=== PATIENT | female | born 1990 | race Caucasian/White ===

== ENCOUNTER 2022-03-11 06:08 | Inpatient (IN) | payer OTHER ==
[2022-03-11] MEDS ORDERED: BICITRA ORAL LIQD 30ML PO NR (07:32)
[2022-03-11] MEDS ORDERED: METOCLOPRAMIDE 10 MG/2 ML INJ IV NR (07:32)
[2022-03-11] MEDS ORDERED: FAMOTIDINE 20 MG/2 ML INJ IV NR (07:32)
[2022-03-11 07:40] LABS: Basophils % (Auto) 0.2 % (0.0-1.8); Eosinophils # (Auto) 0.1 K/mm3 (0.0-0.4); Eosinophils % (Auto) 1.1 % (0.0-4.3); Hematocrit 32.9 % (30.3-42.9); Lymphocytes % (Auto) 22.5 % (13.4-35.0); Mean Corpuscular HGB Conc 33 % (30-34); Mean Corpuscular Volume 91 fl (79-97); Monocytes # (Auto) 0.8 K/mm3 (0.0-0.8); Platelet Count 189 K/mm3 (140-440); Red Blood Count 3.61 M/mm3 (3.65-5.03); Red Cell Distribution Width 14.2 % (13.2-15.2)
[2022-03-11] MEDS ORDERED: ceFAZolin/Water 2 GM/20 ML 2 GM/20 ML SYRINGE IV NR (08:00)
[2022-03-11] MEDS ORDERED: LACTATED RINGERS 1,000 ML IV SCH ×2 (08:00→15:00)
[2022-03-11] MEDS ORDERED: WITCH HAZEL/ GLYCERIN PAD TP PRN (08:00)
[2022-03-11] MEDS ORDERED: OXYTOCIN DRIP 30 UNITS/500 ML BAG IV SCH ×2 (08:00)
[2022-03-11] MEDS ORDERED: PROMETHAZINE 25 MG RECT SUPP PR PRN (08:30)
[2022-03-11] MEDS ORDERED: ACETAMINOPHEN 325 MG TAB PO PRN (09:00)
[2022-03-11] MEDS ORDERED: LANOLIN/ZINC/DIMETHICONE (LANSINOH) 7 GM TP PRN (09:00)
[2022-03-11] MEDS ORDERED: NALOXONE 0.4 MG/1 ML INJ IV PRN (09:00)
[2022-03-11] MEDS ORDERED: IBUPROFEN 600 MG TAB PO PRN (09:00)
[2022-03-11] MEDS ORDERED: ONDANSETRON 4 MG/2 ML INJ IV PRN (09:00)
[2022-03-11] MEDS ORDERED: MORPHINE 4 MG/1 ML INJ IV PRN (09:00)
--- NOTE | 2022-03-11 09:10 | Anesthesia Day of Surgery ---
Anesthesia Day of Surgery - Day of Surgery Patient Examined: Yes Patient H&P Reviewed: Yes Patient is NPO: Yes
--- NOTE | 2022-03-11 09:14 | Anesthesia Consultation ---
Anesthesia Consult and Med Hx Date of service: 03/11/22 - Airway Anesthetic Teeth Evaluation: Poor ROM Head & Neck: Adequate Mental/Hyoid Distance: Adequate Mallampati Class: Class II Intubation Access Assessment: Probably Good - Pulmonary Exam CTA: Yes - Cardiac Exam Cardiac Exam: RRR - Pre-Operative Health Status ASA Pre-Surgery Classification: ASA3 Proposed Anesthetic Plan: Epidural, Spinal - Pulmonary Hx Smoking: No Hx Asthma: No SOB: Yes COPD: No Hx Pneumonia: No Hx Sleep Apnea: No (Snores but denies KIKI) - Cardiovascular System Hx Hypertension: Yes - Central Nervous System Hx Neuromuscular Disorder: No Hx Seizures: No Hx Back Pain: Yes Hx Psychiatric Problems: No - Gastrointestinal Hx Gastroesophageal Reflux Disease: Yes - Endocrine Hx Renal Disease: No Hx End Stage Renal Disease: No Hx Hypothyroidism: No Hx Hyperthyroidism: No - Hematic Hx Anemia: No Hx Sickle Cell Disease: No - Other Systems Hx Alcohol Use: No Hx Substance Use: No Hx Obesity: Yes
--- NOTE | 2022-03-11 09:22 | History and Physical Report ---
History of Present Illness Date of admission: 03/11/22 06:08 Past History - Obstetrical History : 3 Medications and Allergies Allergies Allergy/AdvReac Type Severity Reaction Status Date / Time No Known Allergies Allergy Unverified 03/11/22 07:28 Active Meds: Active Medications Acetaminophen (Acetaminophen 325 Mg Tab) 650 mg PO Q4H PRN PRN Reason: Fever >100.5/ALLEN Enoxaparin Sodium (Enoxaparin 40 Mg/0.4 Ml Inj) 40 mg SUB-Q QDAY LINDA Ferrous Sulfate (Ferrous Sulfate 325 Mg Tab) 325 mg PO QDAY LINDA Hydrocortisone Acetate (Hydrocortisone 25 Mg Rectal Supp) 25 mg MI BID PRN PRN Reason: Hemorrhoids Lactated Ringer's (Lactated Ringers) 1,000 mls @ 2,250 mls/hr IV PREOP LINDA Stop: 03/12/22 08:27 Oxytocin/Sodium Chloride (Pitocin/Ns 30 Unit/500ml) 30 units in 500 mls @ 0 mls/hr IV TITR LINDA; Protocol Oxytocin/Sodium Chloride (Pitocin/Ns 30 Unit/500ml) 30 units in 500 mls @ 40 mls/hr IV TITR LINDA; Protocol Cefazolin Sodium 3 gm/ Sodium (Chloride) 100 mls @ 100 mls/30 min IV PREOP NR; Protocol Stop: 03/11/22 11:00 Cefazolin Sodium 2 gm/ Sodium (Chloride) 100 mls @ 200 mls/hr IV Q8H LINDA; Protocol Stop: 03/12/22 09:29 Magnesium Sulfate (Magnesium Sulfate 40gm/1000ml) 40 gm in 1,000 mls @ 50 mls/hr IV DIRECT LINDA Magnesium Sulfate (Magnesium Sulfate 4gm/100ml) 4 gm in 100 mls @ 25 mls/hr IV ONCE ONE Stop: 03/11/22 12:17 Ibuprofen (Ibuprofen 600 Mg Tab) 600 mg PO Q6H PRN PRN Reason: Pain, Mild (1-3) Ibuprofen (Ibuprofen 800 Mg Tab) 800 mg PO Q6H PRN PRN Reason: Pain, Moderate (4-6) Labetalol HCl (Labetalol 20 Mg/4 Ml Inj) 40 mg IV ONCE NR Stop: 03/11/22 09:30 Magnesium Hydroxide (Magnesium Hydroxide (Mom) Oral Liqd Udc) 30 ml PO QHS PRN PRN Reason: Constip Unrelieved By Senna Morphine Sulfate (Morphine 4 Mg/1 Ml Inj) 4 mg IV Q4H PRN PRN Reason: Pain , Severe (7-10) Multi-Ingredient Ointment (Lanolin/Zinc/Dimethicone (Lansinoh) 7 Gm) 1 applic TP PRN PRN PRN Reason: dryness/cracking Multivitamins/Iron/Calcium ( Tnr09-Pm Fumarate-Folic Acid Vit Tab) 1 each PO QDAY LINDA Naloxone HCl (Naloxone 0.4 Mg/1 Ml Inj) 0.1 mg IV Q2MIN PRN PRN Reason: Res Rate </= 8 or 02 SAT < 92% Ondansetron HCl (Ondansetron 4 Mg/2 Ml Inj) 4 mg IV Q8H PRN PRN Reason: Nausea And Vomiting Oxycodone/Acetaminophen (Oxycodone /Acetaminophen 5-325mg Tab) 2 tab PO Q4H PRN PRN Reason: Pain, Moderate (4-6) Promethazine HCl (Promethazine 25 Mg Rect Supp) 25 mg MI Q6H PRN PRN Reason: N/V IF NPO AND NO IV ACCESS Senna (Sennosides 8.6 Mg Tab) 17.2 mg PO QHS PRN PRN Reason: Constipation Simethicone (Simethicone 80 Mg Chew Tab) 80 mg PO Q6H PRN PRN Reason: Gas pain Sodium Chloride (Sodium Chloride 0.9% 10 Ml Flush Syringe) 10 ml IV PRN NR Stop: 03/23/22 07:59 Witch Nicolle/Glycerin (Witch Nicolle/ Glycerin Pad) 1 each TP PRN PRN PRN Reason: Hemorrhoids/cleansing/soothing - Vital Signs Vital signs: Vital Signs Temp Pulse Pulse Ox 98.3 F 80 99 03/11/22 07:20 03/11/22 07:20 03/11/22 07:20 Temp Pulse Resp BP Pulse Ox 98.3 F 76 148/91 99 03/11/22 07:20 03/11/22 08:48 03/11/22 08:48 03/11/22 08:20 Results Result Diagrams: 03/11/22 07:28 Abnormal lab results 03/11/22 Range/Units 07:28 WBC 13.3 H (4.5-11.0) K/mm3 RBC 3.61 L (3.65-5.03) M/mm3 Seg Neutrophils % 70.2 H (40.0-70.0) % Seg Neutrophils # 9.4 H (1.8-7.7) K/mm3 All other labs normal.
[2022-03-11] MEDS ORDERED: ONDANSETRON 4 MG/2 ML INJ ONE (09:32)
[2022-03-11] MEDS ORDERED: ceFAZolin/Water 2 GM/20 ML 2 GM/20 ML SYRINGE IV ONE (09:35)
[2022-03-11] MEDS ORDERED: HYDROCORTISONE 25 MG RECTAL SUPP PR PRN (10:00)
[2022-03-11] MEDS ORDERED: MAGNESIUM SULFATE 4 GM/100 ML BAG IV ONE ×2 (10:00→14:14)
[2022-03-11] MEDS ORDERED: SUCCINYLCHOLINE CHLORIDE 200 MG/10 ML INJ MDV ONE (10:35)
[2022-03-11] MEDS ORDERED: propofoL 200 MG/20 ML VIAL IV ONE (10:35)
[2022-03-11] MEDS ORDERED: KETAMINE/STERILE WATER 50 MG/ML SYRINGE ONE (10:36)
[2022-03-11] MEDS ORDERED: LIDOCAINE MPF (2%) 20 MG/1 ML VIAL 5 ML ONE (10:36)
[2022-03-11] MEDS ORDERED: ceFAZolin 1 GM VIAL ONE (10:44)
[2022-03-11] MEDS ORDERED: WATER FOR IRRIG STERILE 1,500 ML BOTTLE IR ONE (10:45)
[2022-03-11] MEDS ORDERED: SODIUM CHLORIDE 0.9% IRR 1,500 ML BOTTLE IR ONE (10:45)
[2022-03-11] MEDS ORDERED: CARBOPROST TROMETHAMINE 250 MCG/1 ML INJ IM ONE (10:56)
[2022-03-11] MEDS ORDERED: METHYLERGONOVINE MALEATE 0.2 MG/ML VIAL IM ONE (10:57)
[2022-03-11] MEDS ORDERED: miSOPROStol 200 MCG TAB ONE (10:58)
[2022-03-11] MEDS ORDERED: HYDROmorphone 1 MG/1 ML INJ ONE ×2 (11:33)
[2022-03-11] MEDS ORDERED: dexAMETHasone 20 MG/5 ML VIAL ONE (11:34)
[2022-03-11] MEDS ORDERED: ROCURONIUM 50 MG/5 ML INJ IV ONE (11:34)
--- NOTE | 2022-03-11 12:59 | Progress Note ---
Spinal Anesthesia Block - Spinal Anesthesia Block Start Time: 10:15 Stop Time: 10:22 Performed by:: DIANA HITCHCOCK Procedure: Patient IDed, H&P reviewed, all questions and concerns were answered, and consent was signed. Timeout was performed at bedside. Patient in sitting position. Sterile prep and drape was performed. [3] ml of 1% lidocaine skin wheal at L[3]- L [4] c/o right hip pain. Introducer redirected Right hip pain not improved. After 2 attempts patient wishes to convert to GETA. Risk, Benefits and alternatives reviewed.
[2022-03-11] MEDS: MAGNESIUM SULFATE 40GM/1000ML 40 GM/1,000 ML BAG IV SCH (14:55)
[2022-03-11] MEDS: oxyCODONE /ACETAMINOPHEN 5-325MG TAB PO PRN ×2 (15:44→22:11)
[2022-03-11 16:44] LABS: Alanine Aminotransferase 14 units/L (7-56); Albumin 3.2 g/dL (3.9-5); Blood Urea Nitrogen 9 mg/dL (7-17); Calcium 8.5 mg/dL (8.4-10.2); Hemolysis Index 4
[2022-03-11 16:46] LABS: BUN/Creatinine Ratio 23
[2022-03-11] MEDS: IBUPROFEN 800 MG TAB PO PRN (17:20)
--- NOTE | 2022-03-11 17:33 | Operative Report ---
Operative Report Operative Report: General procedure information Date of procedure: 03/11/2022 Surgeon: Priscila Oquendo MD Unified Communications Engineer: Katja Romero MD ([place]) Pre-operative diagnosis: 1. 31 yo at 40 wga 2. Pre eclampsia without severe features 3. Gestational diabetes 4. Severe obesity Post-operative diagnosis: same Procedure name(s): Repeat low transverse section Type of anesthesia: General endotracheal anesthesia (Declined spinal) QBL: 977 mL IVF: 2800ml Crystalloids UO: 250cc clear urine Complications: none Dispostition: Patient was successfully extubated and returned to the recovery room in stable condition. Findings Male NURY Nuchal cord x1-reducible APGARs 8,9 Weight 2950 g 18.5 inches Placenta intact with 3 vessel cord Dense scar tissue subcutaneous/area of bladder Pathology Placenta Operative note: After being fully consented and made aware of the risks and benefits of the procedure, the patient was taken to the operating room where she was placed in the dorsal supine position with leftward tilt. She was then prepped and draped in normal sterile fashion. After the appropriate timeout was taken and general anesthesia was confirmed a transverse skin incision was made with a scalpel and a well vascularized area of the skin. It was carried through to the underlying fascia with the Bovie on cut. When the fascia was observed it was nicked in the midline with the Bovie on cut. It was then dissected down to the muscle. And this was done bilaterally. The superior aspect of the incision was grasped with 2 Sue clamps elevated and the underlying rectus muscles were dissected off of the overlying fascia. Attention was then turned to the inferior aspect of the incision which in a similar fashion was grasped with Sue clamps and the midline elevated and the underlying pyrimidalis muscles were dissected off of the overlying fascia. The midline of the rectus muscles was identified and carefully dissected down to the peritoneal cavity with a hemostat along the linea alba. Once entry was gained into the peritoneal pe ritoneal cavity with bluntly, the superior and inferior aspects of the aperture were dissected in layers carefully avoiding the bowel and the bladder. Once this was done tension was applied to the rectus muscles and underlying peritoneum with good visualization of the uterus. A large Bladimir retractor was placed intra-abdominally and was positioned appropriately in order to have access to the lower uterine segment. A bladder blade was also placed for this purpose. The uterine serosa was then grasped in the lower segment with a smooth forceps, tented up and entered into sharply with Metzenbaum scissors. The incision was then extended bilaterally in a curvilinear fashion after the serosa was undermined. Once this was done, the superior aspect of the bladder was dissected off of the lower uterine segment. A new scalpel was used to gain entry into the uterine cavity once entry was gained into the uterine cavity clear amniotic fluid was noted the incision was then extended bilaterally. The fetus's head was then grasped elevated and delivered through the incision. A nuchal cord x1 which was reducible was noted. Once the fetus was fully delivered the mouth and nares were bulb suctioned and the cord was doubly clamped and cut the was handed off to the NICU team and noted to be vigorous. After this was done the placenta was removed from the uterus via uterine massage and was noted to be intact with a three-vessel cord. The uterus was then cleared of all clots and debris with moist laps x2. Musa clamps were used to isolate this inferior aspect of the uterine incision. The hysterotomy was then repaired using 0 Vicryl suture in a running locked fashion with excellent hemostasis. It was then embricated using 0 Vicryl suture on a CTX needle with excellent hemostasis the incision was irrigated and checked for bleeders of which there were none pressure was applied to the incision with a moist lap and the paracolic gutters were cleared of all clots w ith moist laparotomy sponges and suction. Surgicel was placed along the incision. The Bladimir retractor was removed and the muscle was reapproximated using 2-0 Vicryl suture in a running fashion with excellent hemostasis carefully avoiding the bowel and the bladder. The muscle was checked for bleeders of which there were a few and they were lightly cauterized or treated with the remaining jhaveri rgicel. The fascial incision was reapproximated using [address] 1 needle and this was done in a running fashion with excellent hemostasis. The subcutaneous fatty layer was irrigated and checked for bleeders of which there were few and they were cauterized and there was hemostasis. The Ariel's fascia was reapproximated using 2-[address] 1 needle with excellent hemostasis. The skin was reapproximated using 3-0 Monocryl suture in a subcuticular fashion a pressure dressing was applied patient tolerated the procedure well all counts were correct x3 as she was returned to the recovery room in stable condition. Due to the patient's obesity Lovenox was going to be given postoperatively. Additionally for the patient's diagnosis of preeclampsia, magnesium sulfate was also going to be continued postoperatively. Lastly plans were made to give patient 3 extra doses of Ancef postoperatively for prophylaxis thanks this is Dr. Adrian Oquendo dictating an operative report thanks end dictation
[2022-03-11] MEDS ORDERED: PHENOL 1.4% 177 ML BOTTLE MM PRN (18:13)
[2022-03-11 18:27] LABS: Bilirubin,Urine NEG (Negative); Blood,Urine NEG (Negative); Color,Urine Yellow (Yellow); Urobilinogen,Urine < 2.0 mg/dL (<2.0)
[2022-03-11 18:30] LABS: RBC,Urine < 1.0 /HPF (0.0-6.0); WBC,Urine < 1.0 /HPF (0.0-6.0)
[2022-03-11 19:03] LABS: Creatinine,Urine 52.5 mg/dL (0.1-20.0)
[2022-03-11 20:44] LABS: Bacteria,Urine 1+ /HPF (Negative); Mucus,Urine 1+ /HPF
[2022-03-11] MEDS ORDERED: SENNOSIDES 8.6 MG TAB PO PRN (22:00)
[2022-03-11] MEDS ORDERED: MAGNESIUM HYDROXIDE (MOM) ORAL LIQD UDC PO PRN (22:00)
[2022-03-12 04:58] LABS: Basophils # (Auto) 0.2 K/mm3 (0.0-0.1); Basophils % (Auto) 0.8 % (0.0-1.8); Eosinophils % (Auto) 0.1 % (0.0-4.3); Hematocrit 30.8 % (30.3-42.9); Hemoglobin 10.1 gm/dl (10.1-14.3); Lymphocytes # (Auto) 2.7 K/mm3 (1.2-5.4); Lymphocytes % (Auto) 13.6 % (13.4-35.0); Mean Corpuscular HGB Conc 33 % (30-34); Mean Corpuscular Volume 92 fl (79-97); Monocytes # (Auto) 1.4 K/mm3 (0.0-0.8); Monocytes % (Auto) 7.3 % (0.0-7.3); Platelet Count 205 K/mm3 (140-440); Red Blood Count 3.34 M/mm3 (3.65-5.03); Red Cell Distribution Width 14.5 % (13.2-15.2)
[2022-03-12] MEDS: oxyCODONE /ACETAMINOPHEN 5-325MG TAB PO PRN ×2 (06:22→15:15)
--- NOTE | 2022-03-12 07:38 | Post Anesthesia Evaluation ---
- Post Anesthesia Evaluation Patient Participated: Yes Airway Patent: Yes Stable Respiratory Function: Yes Nausea/Vomiting: No Temp > 96.8F: Yes Pain Manageable: Yes Adequeate Hydration: Yes Anesthesia Complications: No Block Receding Appropriately: Not Applicable Patient on Ventilator: No
[2022-03-12] MEDS: SIMETHICONE 80 MG CHEW TAB PO PRN (09:58)
[2022-03-12] MEDS: PRENATAL VIT27-FE FUMARATE-FOLIC ACID VIT TAB PO SCH (09:59)
[2022-03-12] MEDS: FERROUS SULFATE 325 MG TAB PO SCH (10:02)
[2022-03-12] MEDS: IBUPROFEN 800 MG TAB PO PRN ×2 (10:03→21:36)
[2022-03-12] MEDS: MAGNESIUM SULFATE 40GM/1000ML 40 GM/1,000 ML BAG IV SCH (10:36)
[2022-03-12] MEDS: ENOXAPARIN 40 MG/0.4 ML INJ SUB-Q SCH (10:40)
--- NOTE | 2022-03-12 19:07 | Progress Note ---
Assessment and Plan POD#1 C/Section with preeclampsia s/p mag sulfate and BP wnl with oral meds 1. Routine post op care 2. Continue labetalol 300mg bid All questions encouraged and answered Subjective Date of service: 03/12/22 Principal diagnosis: POD#1 C/S Interval history: pt has not passed flatus as yet. Denies headache. pain controlled with meds. Denies N/V/F/C Objective - Constitutional Vitals: Vital Signs - 12hr 03/12/22 03/12/22 03/12/22 07:08 07:13 07:18 Temperature Pulse Rate 85 86 79 Respiratory Rate Blood Pressure Blood Pressure [Left] O2 Sat by Pulse 98 96 97 Oximetry O2 Sat by Pulse Oximetry [ Bilateral Throughout] 03/12/22 03/12/22 03/12/22 07:23 07:27 07:28 Temperature Pulse Rate 76 82 86 Respiratory Rate Blood Pressure 102/50 Blood Pressure [Left] O2 Sat by Pulse 98 95 Oximetry O2 Sat by Pulse Oximetry [ Bilateral Throughout] 03/12/22 03/12/22 03/12/22 07:33 07:37 07:38 Temperature Pulse Rate 82 82 87 Respiratory Rate Blood Pressure Blood Pressure [Left] O2 Sat by Pulse 98 94 96 Oximetry O2 Sat by Pulse Oximetry [ Bilateral Throughout] 03/12/22 03/12/22 03/12/22 07:43 07:48 07:53 Temperature Pulse Rate 85 86 85 Respiratory Rate Blood Pressure Blood Pressure [Left] O2 Sat by Pulse 98 96 97 Oximetry O2 Sat by Pulse Oximetry [ Bilateral Throughout] 03/12/22 03/12/22 03/12/22 07:57 07:58 08:00 Temperature 97.9 F Pulse Rate 85 91 H Respiratory Rate Blood Pressure 108/58 Blood Pressure [Left] O2 Sat by Pulse 97 Oximetry O2 Sat by Pulse 97 Oximetry [ Bilateral Throughout] 03/12/22 03/12/22 03/12/22 08:03 08:08 08:13 Temperature Pulse Rate 88 94 H 90 Respiratory Rate Blood Pressure Blood Pressure [Left] O2 Sat by Pulse 98 98 95 Oximetry O2 Sat by Pulse Oximetry [ Bilateral Throughout] 03/12/22 03/12/22 03/12/22 08:14 08:18 08:23 Temperature Pulse Rate 94 H 86 95 H Respiratory Rate Blood Pressure Blood Pressure [Left] O2 Sat by Pulse 94 96 96 Oximetry O2 Sat by Pulse Oximetry [ Bilateral Throughout] 03/12/22 03/12/22 03/12/22 08:26 08:27 08:28 Temperature Pulse Rate 99 H 89 92 H Respiratory Rate Blood Pressure 134/77 Blood Pressure [Left] O2 Sat by Pulse 94 97 Oximetry O2 Sat by Pulse Oximetry [ Bilateral Throughout] 03/12/22 03/12/22 03/12/22 08:33 08:38 08:43 Temperature Pulse Rate 95 H 104 H 101 H Respiratory Rate Blood Pressure Blood Pressure [Left] O2 Sat by Pulse 96 97 97 Oximetry O2 Sat by Pulse Oximetry [ Bilateral Throughout] 03/12/22 03/12/22 03/12/22 08:48 08:53 08:57 Temperature Pulse Rate 100 H 99 H 100 H Respiratory Rate Blood Pressure 115/74 Blood Pressure [Left] O2 Sat by Pulse 97 97 Oximetry O2 Sat by Pulse Oximetry [ Bilateral Throughout] 03/12/22 03/12/22 03/12/22 08:58 09:03 09:08 Temperature Pulse Rate 100 H 105 H 103 H Respiratory Rate Blood Pressure Blood Pressure [Left] O2 Sat by Pulse 98 97 95 Oximetry O2 Sat by Pulse Oximetry [ Bilateral Throughout] 03/12/22 03/12/22 03/12/22 09:13 09:18 09:23 Temperature Pulse Rate 102 H 103 H 96 H Respiratory Rate Blood Pressure Blood Pressure [Left] O2 Sat by Pulse 97 96 96 Oximetry O2 Sat by Pulse Oximetry [ Bilateral Throughout] 03/12/22 03/12/22 03/12/22 09:27 09:28 09:33 Temperature Pulse Rate 97 H 99 H 89 Respiratory Rate Blood Pressure 123/62 Blood Pressure [Left] O2 Sat by Pulse 97 95 Oximetry O2 Sat by Pulse Oximetry [ Bilateral Throughout] 03/12/22 03/12/22 03/12/22 09:35 09:38 09:40 Temperature Pulse Rate 90 88 90 Respiratory Rate Blood Pressure Blood Pressure [Left] O2 Sat by Pulse 94 92 94 Oximetry O2 Sat by Pulse Oximetry [ Bilateral Throughout] 03/12/22 03/12/22 03/12/22 09:43 09:48 09:53 Temperature Pulse Rate 101 H 104 H 99 H Respiratory Rate Blood Pressure Blood Pressure [Left] O2 Sat by Pulse 96 97 97 Oximetry O2 Sat by Pulse Oximetry [ Bilateral Throughout] 03/12/22 03/12/22 03/12/22 09:57 09:58 10:00 Temperature Pulse Rate 95 H 101 H 103 H Respiratory Rate Blood Pressure 145/92 145/92 Blood Pressure [Left] O2 Sat by Pulse 96 Oximetry O2 Sat by Pulse Oximetry [ Bilateral Throughout] 03/12/22 03/12/22 03/12/22 10:01 10:03 10:08 Temperature Pulse Rate 96 H 98 H 101 H Respiratory Rate Blood Pressure 145/92 Blood Pressure [Left] O2 Sat by Pulse 98 96 Oximetry O2 Sat by Pulse Oximetry [ Bilateral Throughout] 03/12/22 03/12/22 03/12/22 10:13 10:18 10:23 Temperature Pulse Rate 100 H 96 H 101 H Respiratory Rate Blood Pressure Blood Pressure [Left] O2 Sat by Pulse 97 97 96 Oximetry O2 Sat by Pulse Oximetry [ Bilateral Throughout] 03/12/22 03/12/22 03/12/22 10:28 10:33 10:38 Temperature Pulse Rate 99 H 97 H 96 H Respiratory Rate Blood Pressure Blood Pressure [Left] O2 Sat by Pulse 97 95 97 Oximetry O2 Sat by Pulse Oximetry [ Bilateral Throughout] 03/12/22 03/12/22 03/12/22 10:43 10:48 10:49 Temperature Pulse Rate 91 H 86 86 Respiratory Rate Blood Pressure 131/61 Blood Pressure [Left] O2 Sat by Pulse 95 98 Oximetry O2 Sat by Pulse Oximetry [ Bilateral Throughout] 03/12/22 03/12/22 03/12/22 10:53 10:58 11:00 Temperature Pulse Rate 90 86 90 Respiratory Rate Blood Pressure Blood Pressure [Left] O2 Sat by Pulse 97 96 94 Oximetry O2 Sat by Pulse Oximetry [ Bilateral Throughout] 03/12/22 03/12/22 03/12/22 11:03 11:08 11:13 Temperature Pulse Rate 87 87 90 Respiratory Rate Blood Pressure Blood Pressure [Left] O2 Sat by Pulse 96 97 98 Oximetry O2 Sat by Pulse Oximetry [ Bilateral Throughout] 03/12/22 03/12/22 03/12/22 11:18 11:23 11:28 Temperature Pulse Rate 82 92 H 94 H Respiratory Rate Blood Pressure Blood Pressure [Left] O2 Sat by Pulse 98 97 95 Oximetry O2 Sat by Pulse Oximetry [ Bilateral Throughout] 0603/12/22 03/12/22 11:33 11:38 11:40 Temperature Pulse Rate 92 H 88 87 Respiratory Rate Blood Pressure Blood Pressure [Left] O2 Sat by Pulse 96 96 94 Oximetry O2 Sat by Pulse Oximetry [ Bilateral Throughout] 03/12/22 03/12/22 03/12/22 11:43 11:45 11:48 Temperature Pulse Rate 84 88 86 Respiratory Rate Blood Pressure 130/65 Blood Pressure [Left] O2 Sat by Pulse 95 94 94 Oximetry O2 Sat by Pulse Oximetry [ Bilateral Throughout] 03/12/22 03/12/22 03/12/22 11:53 11:58 12:00 Temperature Pulse Rate 79 83 83 Respiratory Rate Blood Pressure Blood Pressure [Left] O2 Sat by Pulse 96 97 94 Oximetry O2 Sat by Pulse Oximetry [ Bilateral Throughout] 03/12/22 03/12/22 03/12/22 12:03 12:06 12:08 Temperature Pulse Rate 85 88 89 Respiratory Rate Blood Pressure Blood Pressure [Left] O2 Sat by Pulse 95 94 97 Oximetry O2 Sat by Pulse Oximetry [ Bilateral Throughout] 03/12/22 03/12/22 03/12/22 12:13 12:16 12:18 Temperature Pulse Rate 86 82 82 Respiratory Rate Blood Pressure Blood Pressure [Left] O2 Sat by Pulse 96 93 98 Oximetry O2 Sat by Pulse Oximetry [ Bilateral Throughout] 03/12/22 03/12/22 03/12/22 12:23 12:28 12:30 Temperature Pulse Rate 93 H 87 94 H Respiratory Rate Blood Pressure Blood Pressure [Left] O2 Sat by Pulse 96 99 92 Oximetry O2 Sat by Pulse Oximetry [ Bilateral Throughout] 03/12/22 03/12/22 03/12/22 12:33 12:38 12:43 Temperature Pulse Rate 91 H 84 83 Respiratory Rate Blood Pressure Blood Pressure [Left] O2 Sat by Pulse 98 98 97 Oximetry O2 Sat by Pulse Oximetry [ Bilateral Throughout] 03/12/22 03/12/22 03/12/22 12:48 12:53 12:58 Temperature Pulse Rate 82 86 86 Respiratory Rate Blood Pressure 136/78 Blood Pressure [Left] O2 Sat by Pulse 98 97 98 Oximetry O2 Sat by Pulse Oximetry [ Bilateral Throughout] 03/12/22 03/12/22 03/12/22 13:03 13:08 13:10 Temperature Pulse Rate 83 83 90 Respiratory Rate Blood Pressure Blood Pressure [Left] O2 Sat by Pulse 97 99 94 Oximetry O2 Sat by Pulse Oximetry [ Bilateral Throughout] 03/12/22 03/12/22 03/12/22 13:13 13:18 13:23 Temperature Pulse Rate 87 84 81 Respiratory Rate Blood Pressure Blood Pressure [Left] O2 Sat by Pulse 98 96 97 Oximetry O2 Sat by Pulse Oximetry [ Bilateral Throughout] 03/12/22 03/12/22 03/12/22 13:28 13:33 13:34 Temperature Pulse Rate 91 H 91 H Respiratory Rate Blood Pressure Blood Pressure [Left] O2 Sat by Pulse 96 98 91 Oximetry O2 Sat by Pulse Oximetry [ Bilateral Throughout] 03/12/22 03/12/22 03/12/22 13:38 13:39 13:44 Temperature Pulse Rate 66 96 H Respiratory Rate Blood Pressure Blood Pressure [Left] O2 Sat by Pulse 92 90 93 Oximetry O2 Sat by Pulse Oximetry [ Bilateral Throughout] 03/12/22 03/12/22 03/12/22 13:50 13:54 14:45 Temperature 98.7 F Pulse Rate 82 85 Respiratory 18 Rate Blood Pressure Blood Pressure 138/72 [Left] O2 Sat by Pulse 89 91 95 Oximetry O2 Sat by Pulse 95 Oximetry [ Bilateral Throughout] 03/12/22 03/12/22 15:15 18:11 Temperature Pulse Rate 78 Respiratory 20 18 Rate Blood Pressure Blood Pressure 139/72 [Left] O2 Sat by Pulse 99 Oximetry O2 Sat by Pulse Oximetry [ Bilateral Throughout] General appearance: Present: no acute distress (sitting out of bed in the chair) - Neck Neck: normal ROM - Respiratory Respiratory effort: normal - Breasts Breasts: deferred - Cardiovascular Rhythm: regular Extremities: No edema - Gastrointestinal General gastrointestinal: Present: soft (obese), non-tender, other (Dressing C/D/I ) - Genitourinary Female genitourinary: other (Fundus non-tender 1cm below umbilicus, ) - Integumentary Integumentary: warm, dry - Neurologic Neurologic: moves all extremities - Psychiatric Psychiatric: cooperative - Labs CBC & Chem 7: 03/12/22 04:37 03/11/22 16:05 Labs: Abnormal lab results 03/12/22 Range/Units 04:37 WBC 19.5 H (4.5-11.0) K/mm3 RBC 3.34 L (3.65-5.03) M/mm3 [place] # (Auto) 1.4 H (0.0-0.8) K/mm3 Baso # (Auto) 0.2 H (0.0-0.1) K/mm3 Seg Neutrophils % 78.2 H (40.0-70.0) % Seg Neutrophils # 15.2 H (1.8-7.7) K/mm3 Medications & Allergies - Medications Allergies/Adverse Reactions: Allergies No Known Allergies Allergy (Unverified 03/11/22 07:28) Home Medications: Home Medications Medication Instructions Recorded Confirmed Last Taken Type No Known Home Medications [No 03/11/22 03/11/22 Unknown History Reported Home Medications] Active Medications: Generic Name Dose Route Start Last Admin Trade Name Freq PRN Reason Stop Dose Admin Acetaminophen 650 mg 03/11/22 09:00 Acetaminophen 325 Mg Tab PO Q4H PRN Fever >100.5/ALLEN Enoxaparin Sodium 40 mg 03/12/22 00:00 03/12/22 10:40 Enoxaparin 40 Mg/0.4 Ml Inj SUB-Q 40 mg QDAY LINDA Administration Ferrous Sulfate 325 mg 03/11/22 10:00 03/12/22 10:02 Ferrous Sulfate 325 Mg Tab PO 325 mg QDAY LINDA Administration Hydrocortisone Acetate 25 mg 03/11/22 10:00 Hydrocortisone 25 Mg Rectal Supp [place] BID PRN Hemorrhoids Oxytocin/Sodium Chloride 30 units in 500 mls @ 0 mls/hr 03/11/22 08:00 Pitocin/Ns 30 Unit/500ml IV TITR LINDA Protocol As Directed Oxytocin/Sodium Chloride 30 units in 500 mls @ 40 mls/hr 03/11/22 08:00 Pitocin/Ns 30 Unit/500ml IV TITR LINDA Protocol Magnesium Sulfate 40 gm in 1,000 mls @ 50 mls/hr 03/11/22 09:00 03/12/22 10:36 Magnesium Sulfate 40gm/1000ml IV 2 gm/hr DIRECT LINDA 50 mls/hr Administration 2 GM/HR Lactated Ringer's 1,000 mls @ 75 mls/hr 03/11/22 15:00 03/11/22 14:32 Lactated Ringers IV 75 mls/hr DIRECT LINDA Administration Cefazolin Sodium 2 gm/ Sodium 100 mls @ 200 mls/hr 03/12/22 15:00 Chloride IV 03/13/22 07:29 Q8H [facility] Protocol Ibuprofen 600 mg 03/11/22 09:00 Ibuprofen 600 Mg Tab PO Q6H PRN Pain, Mild (1-3) Ibuprofen 800 mg 03/11/22 09:00 03/12/22 10:03 Ibuprofen 800 Mg Tab PO 800 mg Q6H PRN Administration Pain, Moderate (4-6) Labetalol HCl 200 mg 03/11/22 23:15 03/12/22 10:01 Labetalol 200 Mg Tab PO 200 mg BID LINDA Administration Labetalol HCl 100 mg 03/11/22 23:15 03/12/22 10:00 Labetalol 100 Mg Tab PO 100 mg BID LINDA Administration Magnesium Hydroxide 30 ml 03/11/22 22:00 Magnesium Hydroxide (Mom) Oral Liqd Udc PO QHS PRN Constip Unrelieved By Senna Morphine Sulfate 4 mg 03/11/22 09:00 03/11/22 14:09 Morphine 4 Mg/1 Ml Inj IV 4 mg Q4H PRN Administration Pain , Severe (7-10) Multi-Ingredient Ointment 1 applic 03/11/22 09:00 Lanolin/Zinc/Dimethicone (Lansinoh) 7 Gm TP PRN PRN dryness/cracking Multivitamins/Iron/Calcium 1 each 03/11/22 10:00 03/12/22 09:59 Vxt37-St Fumarate-Folic Acid Vit Tab PO 1 each QDAY LINDA Administration Naloxone HCl 0.1 mg 03/11/22 09:00 Naloxone 0.4 Mg/1 Ml Inj IV Q2MIN PRN Res Rate </= 8 or 02 SAT < 92% Ondansetron HCl 4 mg 03/11/22 09:00 Ondansetron 4 Mg/2 Ml Inj IV Q8H PRN Nausea And Vomiting Oxycodone/Acetaminophen 2 tab 03/11/22 09:00 03/12/22 15:15 Oxycodone /Acetaminophen 5-325mg Tab PO 2 tab Q4H PRN Administration Pain, Moderate (4-6) Phenol 1 spray 03/11/22 18:13 03/11/22 18:41 Phenol 1.4% 177 Ml Bottle MM 1 spray PRN PRN Administration Sore Throat Promethazine HCl 25 mg 03/11/22 08:30 Promethazine 25 Mg Rect Supp WI Q6H PRN N/V IF NPO AND NO IV ACCESS Senna 17.2 mg 03/11/22 22:00 Sennosides 8.6 Mg Tab PO QHS PRN Constipation Simethicone 80 mg 03/11/22 09:00 03/12/22 09:58 Simethicone 80 Mg Chew Tab PO 80 mg Q6H PRN Administration Gas pain Sodium Chloride 10 ml 03/11/22 08:00 Sodium Chloride 0.9% 10 Ml Flush Syringe IV 03/23/22 07:59 PRN NR Witch Nicolle/Glycerin 1 each 03/11/22 08:00 Witch Nicolle/ Glycerin Pad TP PRN PRN Hemorrhoids/cleansing/soothing
[2022-03-13] MEDS: oxyCODONE /ACETAMINOPHEN 5-325MG TAB PO PRN ×3 (02:01→18:15)
[2022-03-13 04:59] LABS: Basophils % (Auto) 0.2 % (0.0-1.8); Eosinophils # (Auto) 0.1 K/mm3 (0.0-0.4); Eosinophils % (Auto) 1.3 % (0.0-4.3); Hematocrit 28.1 % (30.3-42.9); Hemoglobin 9.3 gm/dl (10.1-14.3); Lymphocytes # (Auto) 2.6 K/mm3 (1.2-5.4); Lymphocytes % (Auto) 23.3 % (13.4-35.0); Mean Corpuscular HGB Conc 33 % (30-34); Mean Corpuscular Volume 93 fl (79-97); Monocytes # (Auto) 0.7 K/mm3 (0.0-0.8); Monocytes % (Auto) 6.5 % (0.0-7.3); Platelet Count 178 K/mm3 (140-440); Red Blood Count 3.03 M/mm3 (3.65-5.03); Red Cell Distribution Width 14.7 % (13.2-15.2)
[2022-03-13] MEDS: IBUPROFEN 800 MG TAB PO PRN ×3 (06:18→23:34)
[2022-03-13] MEDS: ENOXAPARIN 40 MG/0.4 ML INJ SUB-Q SCH (09:53)
[2022-03-13] MEDS: FERROUS SULFATE 325 MG TAB PO SCH (09:53)
[2022-03-13] MEDS: PRENATAL VIT27-FE FUMARATE-FOLIC ACID VIT TAB PO SCH (09:53)
--- NOTE | 2022-03-13 10:20 | Progress Note ---
Assessment and Plan A: POD #2 Preeclampsia Blood Pressures mildly elevated (140s/80s, 150s/90) GDM Asymptomatic Anemia Morbid Maternal Obesity P: Follow Routine PostOp Orders Continue Labetalol 300mg PO BID Change Regular Diet to GDM Diet Accuchecks after meals Continue FeSO4 as ordered Subjective - Subjective Date of service: 03/13/22 Principal diagnosis: POD#1 C/S Patient reports: appetite normal, voiding normally, pain well controlled, flatus, ambulating normally, other (Denies HAs, visual changes, N&V, and epigastic pain) [place]: doing well, bottle feeding (and breastfeediing) Objective - Vital Signs Latest vital signs: Vital Signs Temp Pulse Resp BP BP Pulse Ox Pulse Ox 03/13/22 08:00 99 03/13/22 07:41 97.9 F 81 16 145/79 94 03/13/22 06:18 18 03/13/22 05:30 74 18 155/90 98 03/13/22 03:01 18 03/13/22 02:01 18 03/13/22 01:03 98.1 F 82 20 149/92 96 03/12/22 22:36 18 03/12/22 21:37 89 149/73 03/12/22 21:36 89 18 149/73 03/12/22 21:12 98.3 F 89 20 149/73 96 03/12/22 20:53 99 03/12/22 18:11 78 18 139/72 99 03/12/22 15:15 20 03/12/22 14:45 98.7 F 85 18 138/72 95 95 03/12/22 13:54 82 91 03/12/22 13:50 89 03/12/22 13:44 93 03/12/22 13:39 96 H 90 03/12/22 13:38 66 92 03/12/22 13:34 91 03/12/22 13:33 91 H 98 03/12/22 13:28 91 H 96 03/12/22 13:23 81 97 03/12/22 13:18 84 96 03/12/22 13:13 87 98 03/12/22 13:10 90 94 03/12/22 13:08 83 99 03/12/22 13:03 83 97 03/12/22 12:58 86 98 03/12/22 12:53 86 97 03/12/22 12:48 82 136/78 98 03/12/22 12:43 83 97 03/12/22 12:38 84 98 03/12/22 12:33 91 H 98 03/12/22 12:30 94 H 92 03/12/22 12:28 87 99 03/12/22 12:23 93 H 96 03/12/22 12:18 82 98 03/12/22 12:16 82 93 03/12/22 12:13 86 96 03/12/22 12:08 89 97 03/12/22 12:06 88 94 03/12/22 12:03 85 95 03/12/22 12:00 98.3 F 83 94 03/12/22 11:58 83 97 03/12/22 11:53 79 96 03/12/22 11:48 86 130/65 94 03/12/22 11:45 88 94 03/12/22 11:43 84 95 03/12/22 11:40 87 94 03/12/22 11:38 88 96 03/12/22 11:33 92 H 96 03/12/22 11:28 94 H 95 03/12/22 11:23 92 H 97 03/12/22 11:18 82 98 03/12/22 11:13 90 98 03/12/22 11:08 87 97 03/12/22 11:03 87 96 03/12/22 11:00 90 94 03/12/22 10:58 86 96 03/12/22 10:53 90 97 03/12/22 10:49 86 131/61 03/12/22 10:48 86 98 03/12/22 10:43 91 H 95 03/12/22 10:38 96 H 97 03/12/22 10:33 97 H 95 03/12/22 10:28 99 H 97 03/12/22 10:23 101 H 96 03/12/22 10:18 96 H 97 03/12/22 10:13 100 H 97 03/12/22 10:08 101 H 96 03/12/22 10:03 98 H 98 03/12/22 10:01 96 H 145/92 03/12/22 10:00 103 H 145/92 Intake and Output 03/12/22 03/13/22 03/13/22 22:59 06:59 14:59 Intake Total 900 240 Output Total 300 Balance 600 240 Intake: IV 100 ceFAZolin 2 GM In NaCl 0. 100 9% 100 ml @ 200 mls/hr IV Q8H [facility] Rx#:[id number] Oral 800 240 Output: Urine 300 Void 300 Other: Total, Intake Amount 240 120 Total, Output Amount 300 # Voids Void 1 1 - Exam Breasts: Present: normal Cardiovascular: Present: Regular rate Lungs: Present: Clear to auscultation, Normal air movement Abdomen: Present: normal appearance, soft, normal bowel sounds Uterus: Present: normal, firm, fundal height below umbilicus Extremities: Present: normal Incision: Present: normal, dry, intact - Labs Labs: Abnormal lab results 03/13/22 Range/Units 04:07 WBC 11.2 H (4.5-11.0) K/mm3 RBC 3.03 L (3.65-5.03) M/mm3 Hgb 9.3 L (10.1-14.3) gm/dl Hct 28.1 L (30.3-42.9) %
[2022-03-13] MEDS: SIMETHICONE 80 MG CHEW TAB PO PRN (10:31)
[2022-03-14] MEDS: oxyCODONE /ACETAMINOPHEN 5-325MG TAB PO PRN (03:53)
[2022-03-14] MEDS: FERROUS SULFATE 325 MG TAB PO SCH (10:07)
[2022-03-14] MEDS: PRENATAL VIT27-FE FUMARATE-FOLIC ACID VIT TAB PO SCH (10:07)
[2022-03-14] MEDS: IBUPROFEN 800 MG TAB PO PRN (10:08)
[2022-03-14] MEDS: ENOXAPARIN 40 MG/0.4 ML INJ SUB-Q SCH (10:18)
[2022-03-14] MEDS ORDERED: NIFEdipine XL 30 MG TAB PO SCH (11:00)
--- NOTE | 2022-03-14 15:34 | Progress Note ---
Assessment and Plan A: POD # 3 stable P: Discharge home today Discharge instructions given Subjective - Subjective Principal diagnosis: POD#3 C/S Patient reports: appetite normal [place]: doing well Objective - Vital Signs Latest vital signs: Vital Signs Temp Pulse Resp BP BP BP Pulse Ox 03/14/22 12:52 98.0 F 91 H 18 140/84 97 03/14/22 10:05 215/101 03/14/22 10:02 86 174/109 97 03/14/22 10:00 84 94 03/14/22 08:30 03/14/22 08:11 98.0 F 84 18 154/97 96 03/14/22 05:35 97.8 F 85 18 137/82 96 03/14/22 02:05 148/87 03/14/22 01:30 98.1 F 96 H 20 97 03/13/22 22:19 87 149/81 03/13/22 22:18 87 149/81 03/13/22 21:45 84 20 151/73 97 03/13/22 20:00 03/13/22 16:13 98.1 F 79 16 149/84 96 Pulse Ox 03/14/22 12:52 03/14/22 10:05 03/14/22 10:02 03/14/22 10:00 03/14/22 08:30 96 03/14/22 08:11 03/14/22 05:35 03/14/22 02:05 03/14/22 01:30 03/13/22 22:19 03/13/22 22:18 03/13/22 21:45 03/13/22 20:00 96 03/13/22 16:13 Intake and Output 03/14/22 03/14/22 03/14/22 06:59 14:59 22:59 Intake Total 360 840 Balance 360 840 Intake: Oral 360 600 Intake, Free Water 240 Other: Total, Intake Amount 120 480 # Voids Void 1 1 - Exam Breasts: Present: deferred Cardiovascular: Present: Regular rate Abdomen: Present: normal appearance Vulva: both: normal Uterus: Present: normal Extremities: Present: normal Deep Tendon Reflex Grade: Normal +2 Incision: Present: intact
--- NOTE | 2022-03-14 15:38 | Discharge Summary ---
Providers - Providers Date of Admission: 03/11/22 06:08 Date of discharge: 03/14/22 Attending physician: WOODY CHILD Primary care physician: WOODY CHILD Hospitalization Reason for admission: active labor Delivery: Episiotomy: none Laceration: 2nd degree Other procedures: none complications: none Discharge diagnosis: IUP at term delivered baby: female Condition at discharge: Good Disposition: 01 HOME / SELF CARE / HOMELESS Plan - Discharge Medications Prescriptions: NIFEdipine XL [Procardia Xl] 30 mg PO QDAY 30 Days #30 tablet - Provider Discharge Summary Activity: no sex for 6 weeks, no heavy lifting 4 weeks, no strenuous exercise Diet: routine Instructions: routine Additional instructions: [] Smoking cessation referral if applicable(refer to patient education folder for contact #) [] Refer to [facility] Book[facility] Call your doctor immediately for: * Fever > 100.5 * Heavy vaginal bleeding ( >1 pad per hour) * Severe persistent headache * Shortness of breath * Reddened, hot, painful area to leg or breast * Drainage or odor from incision. * Keep incision clean and dry at all times and follow doctor's instructions regarding bathing/showering - Follow up plan Follow up: WOODY CHILD MD [Primary Care Provider] - 14 Days
[2022-03-14 18:43] VITALS: BP 146/88
== END 2022-03-14 20:30 | disposition home or self-care (01) | DRG 766 ==
LOC: APU 06:08 → LD 13:56 → OB 03-12 14:31
PROVIDERS: ADMIT Obstetrics & Gynecology; ATTEND Obstetrics & Gynecology
PROC: 10D00Z1 Extraction of Products of Conception, Low, Open Approach (ICD-10-PCS; principal; 2022-03-11)
DX: O11.4 Pre-existing hypertension with pre-eclampsia, complicating childbirth (principal); O24.429 Gestational diabetes mellitus in childbirth, unspecified control; Z37.0 Single live birth; Z20.822 Contact with and (suspected) exposure to COVID-19; O99.62 Diseases of the digestive system complicating childbirth; K21.9 Gastro-esophageal reflux disease without esophagitis; O99.214 Obesity complicating childbirth; Z3A.39 39 weeks gestation of pregnancy; O34.211 Maternal care for low transverse scar from previous cesarean delivery; E66.01 Morbid (severe) obesity due to excess calories; O90.81 Anemia of the puerperium; O69.81X0 Labor and delivery complicated by cord around neck, without compression, not applicable or unspecified
CPT/HCPCS: 36415; 80053; 81001; 82570; 82962; 83615; 84156; 84550; 85025; 86850; 86900; 86901; 88307; 99211; G0378; J3490; J7121; G0463; J0330; J0690; J1100; J1170; J1650; J2270; J2405; J2704; J2765; J3475; J7120; U0003